=== PATIENT | female | born 1995 | race Caucasian/White ===

== ENCOUNTER 2017-10-19 10:44 | Emergency (ER) | payer OTHER ==
[~2017-10-19] VITALS: Ht 167.6 cm; Wt 66.0 kg
[2017-10-19 10:46] VITALS: BP 159/60; PULSE 91; RESP 16; O2SAT 98
--- NOTE | 2017-10-19 11:50 | RADRPT ---
EXAM DATE/TIME: 10/19/2017 11:42 [place] COMPARISON: No previous studies available for comparison. INDICATIONS : Right foot pain, swelling, and bruising after [place] football [place] the beach. MEDICAL HISTORY : None. SURGICAL HISTORY : None. ENCOUNTER: Initial ACUITY: 2 days PAIN SCORE: 8/10 LOCATION: Right dorsal surface FINDINGS: Soft tissue swelling is evident. Alignment anatomic. Fracture is not appreciated.. CONCLUSION: Negative for fracture or dislocation. Follow up in 7-10 days is suggested if symptoms persist. Lan Madrigal MD FACR on October 19, 2017 at 11:47 Board Certified Radiologist. This report was verified electronically.
--- NOTE | 2017-10-19 13:54 | PD ---
HPI Chief Complaint: Injury Time Seen by Provider: 13:41 Travel History International Travel<30 days: No Contact w/Intl Traveler<30days: No Traveled to known affect area: No History of Present Illness HPI 22-year-old female that presents to the ED for evaluation of injury to her right foot. Per patient she was playing on the beach and she accidentally twisted her foot. Per patient she's been having pain and swelling since. This happened last night. Patient states the most of the pain to the dorsal aspect of the foot. She denies hitting her head or losing consciousness. She denies any urinary or bowel movement issues. Hurts to walk on it. Able to do it however. Denies any prior injuries. No open sores. Pain per patient is 6 out of 10 and gets worse with weightbearing. Has no allergies to medication. PFSH Past Medical History Medical History: Denies Significant Hx Diminished Hearing: No Tetanus Vaccination: > 5 Years Influenza Vaccination: No ?: Not LMP: 10/2017 Past Surgical History Oral Surgery: Yes Social History Alcohol Use: Yes (ONCE A WEEK) Tobacco Use: No Substance Use: No Allergies-Medications (Allergen,Severity, Reaction): Coded Allergies: No Known Allergies (Unverified , 10/19/17) Reported Meds & Prescriptions Reported Meds & Active Scripts Active No Active Prescriptions or Reported Medications Review of Systems Except as stated in HPI: all other systems reviewed are Neg Physical Exam Narrative GENERAL: SKIN: Warm and dry. HEAD: Atraumatic. Normocephalic. EYES: Pupils equal and round. No scleral icterus. No injection or drainage. ENT: No nasal bleeding or discharge. Mucous membranes pink and moist. Tongue is midline. No uvula deviation. NECK: Trachea midline. No JVD. CARDIOVASCULAR: Regular rate and rhythm. RESPIRATORY: No accessory muscle use. Clear to auscultation. Breath sounds equal bilaterally. GASTROINTESTINAL: Abdomen soft, non-tender, nondistended. Hepatic and splenic margins not palpable. MUSCULOSKELETAL: Extremities without clubbing, cyanosis, or edema. No obvious deformities. Full range of motion of the upper and lower extremities bilaterally. Patient has a different staging of versus on the legs bilaterally , mainly on the dorsal aspect of the right foot.Soft tissue swelling noted.2 + pulses bilaterally.Good capillary refill.Most of the pain on the dorsal aspect of the foot. No lateral medial malleolar pain with touch. NEUROLOGICAL: Awake and alert. No obvious cranial nerve deficits. Motor grossly within normal limits. Five out of 5 muscle strength in the arms and legs. Normal speech. PSYCHIATRIC: Appropriate mood and affect; insight and judgment normal. Data Data Last Documented VS Vital Signs Date Time Temp Pulse Resp B/P (MAP) Pulse Ox O2 Delivery O2 Flow Rate FiO2 10/19/17 10:46 91 16 159/60 (93) 98 Orders Orders Foot, Complete ([id number]) (10/19/17 ) Crutches (10/19/17 13:42) Tirso Bandage (10/19/17 13:48) Ed Discharge Order (10/19/17 13:48) MDM Medical Decision Making Medical Screen Exam Complete: Yes Emergency Medical Condition: Yes Medical Record Reviewed: Yes Interpretation(s) Last Impressions Foot X-Ray 10/19/17 0000 Signed Impressions: Service Date/Time: Thursday, October 19, 2017 11:42 - CONCLUSION: Negative for fracture or dislocation. Follow up in 7-10 days is suggested if symptoms persist. Lan Madrigal MD FACR Differential Diagnosis Fracture versus bruise versus contusion Narrative Course 22-year-old female that presents to the ED for evaluation of injury to the right foot. Patient was properly examined and was found to have signs and symptoms consistent appears to be contusion. X-ray was ordered and showed no sign of broken bones. Patient was reassured. Patient was told to follow closely with PCP. Given crutches and an Tirso wrap. Given a prescription for diclofenac sodium. See ED worsening symptoms. SPIKE counseled. Diagnosis Primary Impression: Contusion of foot, right Qualified Codes: S90.31XA - Contusion of right foot, initial encounter Patient Instructions: General Instructions Additional Instructions: Take medications as prescribed. Follow-up with PCP. See ED for any worsening symptoms. Apply ice or heat as needed for pain Med/Other Pt SpecificInfo: Prescription(s) given Scripts No Active Prescriptions or Reported Meds Disposition: 01 DISCHARGE HOME Condition: Declan Florez Oct 19, 2017 13:54
[2017-10-19] MEDS ORDERED: DICL75TA PO (13:55)
== END 2017-10-19 14:09 | disposition home or self-care (01) ==
LOC: NEPA 10:44
DX: S90.31XA Contusion of right foot, initial encounter (principal); X50.1XXA Overexertion from prolonged static or awkward postures, initial encounter
CPT/HCPCS: 73630; 99283; E0113